=== PATIENT | male | born 1940 | race Caucasian/White ===

== ENCOUNTER → 2017-06-30 | Outpatient (CLI) | payer MEDICARE, OTHER ==
[~2017-06-30] MED LIST: ALBU8.5H8 IH; AMLO10TA2 PO; AZIT500T2 PO; BUDE10.2 IH; CYCL-259 PO; DEXT15SY PO; ERGO500017 PO; GABA800T PO; LEVE500T53 PO; LEVE500T8 PO; LISI40TA PO; METO-99 PO; OXYC1TAB7 PO; PRED20TA PO; TIOT18CA INH; ZOLP12.52 PO
[2017-06-30 09:14] LABS: HEMATOCRIT 39.8 % (39.2-51.8); HEMOGLOBIN 13.6 g/dL (13.7-18.0); WHITE BLOOD COUNT 5.6 x10^3/uL (3.4-10)
[2017-06-30 09:27] LABS: BLOOD UREA NITROGEN 15 mg/dL (7-18)
[2017-06-30 09:32] LABS: ASPARTATE AMINO TRANSFERASE 22 U/L (15-37)
== END | disposition home or self-care (01) ==
LOC: STAR 07:59
PROVIDERS: ATTEND Orthopaedic Surgery Orthopaedic Surgery of the Spine
DX: Z01.818 Encounter for other preprocedural examination (principal); R94.31 Abnormal electrocardiogram [ECG] [EKG]; R91.8 Other nonspecific abnormal finding of lung field; J98.6 Disorders of diaphragm; I10 Essential (primary) hypertension; M48.06 Spinal stenosis, lumbar region; R79.1 Abnormal coagulation profile; Z85.9 Personal history of malignant neoplasm, unspecified
CPT/HCPCS: 36415; 71020; 80053; 81003; 85025; 85610; 85730; 93005

== ENCOUNTER → 2017-07-21 | Outpatient (CLI) | payer MEDICARE, OTHER | END | disposition home or self-care (01) | LOC: RAD 13:24 | PROVIDERS: ATTEND Internal Medicine Critical Care Medicine | DX: J43.9 Emphysema, unspecified (principal); M48.54XA Collapsed vertebra, not elsewhere classified, thoracic region, initial encounter for fracture; R91.8 Other nonspecific abnormal finding of lung field; J69.0 Pneumonitis due to inhalation of food and vomit | CPT/HCPCS: 71250 ==

== ENCOUNTER 2017-07-22 07:40 | Day surgery (SDC) | payer MEDICARE, OTHER ==
[~2017-07-22] VITALS: Ht 177.8 cm; Wt 74.4 kg
[2017-07-22] MEDS ORDERED: LACTATED RINGERS 1,000 ML IV SCH (08:26)
[2017-07-22 09:07] VITALS: BP 131/59
[2017-07-22] MEDS ORDERED: DEXAMETHASONE 4 MG/ML, 1ML ONE (10:09)
[2017-07-22] MEDS ORDERED: FENTANYL PF 100 MCG/2ML ONE ×2 (10:09)
[2017-07-22] MEDS ORDERED: ROCURONIUM 10 MG/ML ONE (10:09)
[2017-07-22] MEDS ORDERED: SUCCINYLCHOLINE 20 MG/ML, 10ML ONE (10:09)
[2017-07-22] MEDS ORDERED: LIDOCAINE 2%, 10ML ONE (10:09)
[2017-07-22] MEDS ORDERED: ALBUTEROL SULFATE 200 PUFFS/8.5 GR INH ONE (10:09)
[2017-07-22] MEDS ORDERED: ONDANSETRON 2MG/ML, 2ML ONE (10:09)
[2017-07-22] MEDS ORDERED: MIDAZOLAM 1 MG/ML, 2ML ONE (10:09)
[2017-07-22] MEDS ORDERED: PROPOFOL 10 MG/ML, 50ML ONE (10:09)
[2017-07-22] MEDS ORDERED: PROPOFOL 10 MG/ML, 20ML ONE (10:09)
[2017-07-22] MEDS ORDERED: ALBUTEROL/IPRATROPIUM 2.5MG/0.5MG, 3 ML NPPB PRN (11:00)
[2017-07-22] MEDS ORDERED: HYDROmorphone 1 MG/ML, 1ML IV PRN (11:00)
[2017-07-22] MEDS ORDERED: LORazepam 2 MG/ML, 1ML IVPush PRN (11:00)
[2017-07-22] MEDS ORDERED: EPHEDRINE 50 MG/ML, 1ML IVPush PRN (11:00)
[2017-07-22] MEDS ORDERED: MIDAZOLAM 1 MG/ML, 2ML IV PRN (11:00)
[2017-07-22] MEDS ORDERED: ONDANSETRON 2MG/ML, 2ML IVPush PRN (11:00)
[2017-07-22] MEDS ORDERED: FENTANYL PF 100 MCG/2ML IV PRN (11:00)
[2017-07-22] MEDS ORDERED: OXYcodone 5 MG/5 ML ORAL.SOL UDC PO PRN (11:00)
[2017-07-22] MEDS ORDERED: ALBUTEROL SULFATE 2.5 MG/3 ML NPPB PRN (15:30)
== END 2017-07-22 16:15 ==
LOC: OUT 07:40
PROVIDERS: ATTEND Internal Medicine Critical Care Medicine
DX: J18.9 Pneumonia, unspecified organism (principal); F17.210 Nicotine dependence, cigarettes, uncomplicated; J44.9 Chronic obstructive pulmonary disease, unspecified; Z88.8 Allergy status to other drugs, medicaments and biological substances
CPT/HCPCS: 31624; 31627; 31628; 76000; 87070; 87077; 87102; 87186; 87205; 88112; 88172; 88173; 88177; 88305; 94640; J0330; J1100; J2250; J2405; J2704; J3010; J3490; J7120

== ENCOUNTER → 2017-10-08 | Outpatient (CLI) | payer MEDICARE, OTHER ==
[~2017-10-08] MED LIST changes: +REGADENOSON 0.4 MG/5 ML SYRINGE ONE
== END ==
LOC: CFH 12:37
PROVIDERS: ATTEND Family Medicine
DX: Z01.818 Encounter for other preprocedural examination (principal); R07.9 Chest pain, unspecified
CPT/HCPCS: 78452; 93017; A9502; J2785

== ENCOUNTER → 2017-10-23 | Outpatient (CLI) | payer MEDICARE, OTHER ==
[~2017-10-23] MED LIST changes: -REGADENOSON 0.4 MG/5 ML SYRINGE ONE
== END ==
LOC: CFH 14:29
PROVIDERS: ATTEND Internal Medicine Cardiovascular Disease
DX: Z01.810 Encounter for preprocedural cardiovascular examination (principal); I35.8 Other nonrheumatic aortic valve disorders; E78.5 Hyperlipidemia, unspecified; I10 Essential (primary) hypertension; J45.909 Unspecified asthma, uncomplicated; Z87.891 Personal history of nicotine dependence
CPT/HCPCS: 93306

== ENCOUNTER 2017-11-17 05:53 | Inpatient (IN) | payer MEDICARE, OTHER ==
[~2017-11-17] VITALS: Ht 177.8 cm; Wt 82.2 kg
[~2017-11-17 05:53] MED LIST changes: +ATOR20TA9 PO; +TAMS0.4C2 PO
[2017-11-17] MEDS ORDERED: LACTATED RINGERS 1,000 ML IV SCH (06:34)
[2017-11-17 06:39] VITALS: BP 125/66
[2017-11-17] MEDS ORDERED: MIDAZOLAM 1 MG/ML, 2ML ONE (06:43)
[2017-11-17] MEDS ORDERED: FENTANYL PF 250 MCG/5ML ONE (06:44)
[2017-11-17] MEDS ORDERED: PROPOFOL 10 MG/ML, 20ML ONE (06:45)
[2017-11-17] MEDS ORDERED: ROCURONIUM 10 MG/ML,10ML ONE (06:45)
[2017-11-17] MEDS ORDERED: NEOSTIGMINE 1 MG/ML, 10ML ONE (06:46)
[2017-11-17] MEDS ORDERED: GLYCOPYRROLATE 0.4 MG/2 ML, 2ML ONE (06:46)
[2017-11-17] MEDS ORDERED: THROMBIN 5,000 UNIT VIAL TP ONE (06:50)
[2017-11-17] MEDS ORDERED: BUPIVACAINE/PF 0.25% ONE (06:50)
[2017-11-17] MEDS ORDERED: LIDOCAINE/PF 0.5% ,50ML ONE (06:50)
[2017-11-17] MEDS ORDERED: VANCOMYCIN 500 MG ONE (06:50)
[2017-11-17] MEDS ORDERED: EPINEPHRINE 1 MG/ML, 1ML ONE (06:51)
[2017-11-17] MEDS ORDERED: CLINDAMYCIN 150 MG/ML, 6ML ONE (06:52)
[2017-11-17 07:23] LABS: ALANINE AMINOTRANSFERASE 23 U/L (12-78); ALBUMIN 3.7 g/dL (3.4-5.0); ANION GAP 10 mmol/L (5-15); CALCIUM 8.7 mg/dL (8.5-10.1); CHLORIDE 95 mmol/L (98-107); CREATININE 0.86 mg/dL (0.7-1.3)
[2017-11-17 07:25] LABS: ALKALINE PHOSPHATASE 72 U/L (45-117); BILIRUBIN,TOTAL 2.4 mg/dL (0.2-1.0); TOTAL PROTEIN 7.4 g/dL (6.4-8.2)
[2017-11-17] MEDS ORDERED: DIAZEPAM 5 MG/ML, 2ML IVPush PRN (07:30)
[2017-11-17] MEDS ORDERED: ALBUTEROL SULFATE 2.5 MG/3 ML NPPB PRN ×2 (07:30→15:00)
[2017-11-17] MEDS ORDERED: LABETALOL 5MG/ML, 20ML IV PRN (07:30)
[2017-11-17] MEDS ORDERED: hydrALAzine 20 MG/ML, 1ML IV PRN (07:30)
[2017-11-17] MEDS ORDERED: ONDANSETRON 2MG/ML, 2ML IVPush PRN (07:30)
[2017-11-17] MEDS ORDERED: PROMETHAZINE 25 MG/ML, 1ML IV PRN (07:30)
[2017-11-17] MEDS ORDERED: MEPERIDINE/PF 25MG/0.5ML IVPush PRN (07:30)
[2017-11-17] MEDS ORDERED: FENTANYL PF 100 MCG/2ML IV PRN (07:30)
[2017-11-17] MEDS ORDERED: OXYcodone 5 MG/5 ML ORAL.SOL UDC PO PRN (07:30)
[2017-11-17] MEDS ORDERED: ACETAMINOPHEN 325 MG TABLET PO PRN (07:30)
[2017-11-17] MEDS ORDERED: PHENYLEPHRINE 10 MG/ML ONE (07:37)
[2017-11-17] MEDS ORDERED: EPHEDRINE 50 MG/ML, 1ML ONE (08:00)
[2017-11-17] MEDS ORDERED: FLU VACC QS2017-18 (36MOS+) UP/PF 0.5 ML IM-VACC ONE (08:00)
[2017-11-17] MEDS ORDERED: VASOPRESSIN 20 UNIT/ML, 1ML ONE (08:15)
[2017-11-17] MEDS ORDERED: SODIUM CHLORIDE 0.9% PF 10ML ONE (08:17)
[2017-11-17] MEDS ORDERED: VANCOMYCIN 1,000 MG IM ONE (08:54)
[2017-11-17] MEDS ORDERED: OXYcodone 5 MG/5 ML ORAL.SOL UDC ONE (11:05)
[2017-11-17] MEDS ORDERED: HYDROmorphone 2 MG/ML, 1ML ONE ×2 (11:05→11:48)
[2017-11-17] MEDS ORDERED: ACETAMINOPHEN 650 MG/20.3 ML UDC ONE (11:05)
[2017-11-17] MEDS ORDERED: ALBUTEROL SULFATE 2.5 MG/3 ML ONE (11:06)
[2017-11-17] MEDS: HYDROmorphone 1 MG/ML, 1ML IV PRN ×6 (11:17→12:01)
[2017-11-17] MEDS ORDERED: ONDANSETRON 2MG/ML, 2ML IV PRN (14:30)
[2017-11-17] MEDS ORDERED: HYDROcodone/APAP 5/325 TABLET PO PRN (14:30)
[2017-11-17] MEDS ORDERED: VANCOMYCIN PER PHARMACY MC PRN (14:30)
[2017-11-17] MEDS: D5%-0.9% NACL+KCL 20MEQ 1,000 ML IV SCH ×2 (14:30→21:35)
[2017-11-17] MEDS ORDERED: morphine SULFATE 10 MG/ML, 1ML IV PRN (14:30)
[2017-11-17] MEDS ORDERED: BISACODYL 10 MG SUPP PR PRN (14:30)
[2017-11-17] MEDS ORDERED: MAGNESIUM HYDROXIDE 8%, 30ML UDC PO PRN (14:30)
[2017-11-17] MEDS ORDERED: PROMETHAZINE 25 MG/ML, 1ML IM PRN (14:30)
[2017-11-17] MEDS ORDERED: IPRATROPIUM 0.5 MG/2.5 ML INHA NPPB SCH (15:00)
[2017-11-17] MEDS: GABAPENTIN 400 MG CAPSULE PO SCH ×2 (15:23→21:34)
[2017-11-17] MEDS: VANCOMYCIN 1,400 MG in SODIUM CHLORIDE 0.9% 250 ML IV SCH (15:23)
[2017-11-17] MEDS ORDERED: IPRATROPIUM 0.5 MG/2.5 ML INHA NPPB PRN (16:00)
[2017-11-17] MEDS ORDERED: ALBUTEROL HFA 90 MCG/SPRAY INH PRN ×2 (18:00→22:00)
[2017-11-17] MEDS ORDERED: METOPROLOL TARTRATE 50 MG TABLET PO SCH (18:00)
[2017-11-17 19:32] VITALS: BP 106/57
[2017-11-17 20:19] LABS: ANION GAP 6 mmol/L (5-15); CALCIUM 7.8 mg/dL (8.5-10.1); CHLORIDE 96 mmol/L (98-107); CREATININE 0.86 mg/dL (0.7-1.3)
[2017-11-17] MEDS ORDERED: TAMSULOSIN 0.4 MG CAP.ER.24H PO SCH (21:00)
[2017-11-17] MEDS ORDERED: ATORVASTATIN 20 MG TABLET PO SCH (21:00)
[2017-11-17] MEDS ORDERED: LEVETIRACETAM 500 MG TABLET PO SCH (21:00)
[2017-11-17] MEDS ORDERED: FLUTICASONE NASAL SPRAY 16GM NAS SCH (21:00)
[2017-11-17] MEDS ORDERED: AMBIEN 12.5 MG PO SCH (21:00)
[2017-11-17] MEDS: AMBIEN 12.5 MG HOMEMEDPO SCH (21:33)
[2017-11-17] MEDS: SYMBICORT HOMEMEDPO SCH (21:33)
[2017-11-17] MEDS: FLUTICASONE NASAL SPRAY 16GM NAS SCH (21:34)
[2017-11-17] MEDS ORDERED: ALBUTEROL/IPRATROPIUM 2.5MG/0.5MG, 3 ML NPPB PRN (22:30)
[2017-11-18] VITALS: BP 131/63
[2017-11-18] MEDS: VANCOMYCIN 1,400 MG in SODIUM CHLORIDE 0.9% 250 ML IV SCH (03:00)
[2017-11-18 04:06] VITALS: BP 125/88
[2017-11-18] MEDS ORDERED: FUROSEMIDE 40 MG/4 ML IV ONE ×2 (05:10→15:00)
[2017-11-18] MEDS ORDERED: METOPROLOL SUCCINATE 100 MG TAB.ER.24H PO SCH (06:00)
[2017-11-18 06:07] LABS: BASOPHILS # (AUTO) 0.02 x10^3/uL (0-0.1); BASOPHILS % (AUTO) 0 % (0-1); EOSINOPHILS # (AUTO) 0.02 x10^3/uL (0-0.4); EOSINOPHILS % (AUTO) 0 % (1-7); LYMPHOCYTES # (AUTO) 0.29 x10^3/uL (1-3.4); LYMPHOCYTES % (AUTO) 5 % (22-44); MD NO; MEAN CORPUSCULAR HEMOGLOBIN 34.4 pg (27.5-34.5); MEAN CORPUSCULAR HGB CONC 34.2 g/dL (33.2-36.2); MEAN CORPUSCULAR VOLUME 100.9 fL (81-97); MEAN PLATELET VOLUME 7.8 fL (7.4-10.4); MONOCYTES # (AUTO) 0.41 x10^3/uL (0.2-0.8); MONOCYTES % (AUTO) 7 % (2-9); NEUTROPHILS # (AUTO) 5.14 x10^3/uL (1.8-6.8); NEUTROPHILS % (AUTO) 87 % (42-75); PLATELET COUNT 145 x10^3/uL (130-400); RED BLOOD COUNT 3.12 x10^6/uL (4.38-5.82); RED CELL DISTRIBUTION WIDTH 12.9 % (9.4-14.8)
[2017-11-18 06:21] LABS: ANION GAP 9 mmol/L (5-15); CHLORIDE 96 mmol/L (98-107)
[2017-11-18] MEDS: ALBUTEROL/IPRATROPIUM 2.5MG/0.5MG, 3 ML NPPB SCH ×4 (06:46→20:00)
[2017-11-18 06:49] LABS: CREATININE 0.81 mg/dL (0.7-1.3)
[2017-11-18 06:53] LABS: FOLATE LEVEL > 20.0 ng/mL (3.1-17.5)
[2017-11-18 08:26] VITALS: BP 105/62
[2017-11-18] MEDS ORDERED: FLUTICASONE/VILANTEROL 200-25MCG/INH INH SCH (09:00)
[2017-11-18] MEDS ORDERED: LEVETIRACETAM 500 MG TABLET PO SCH (09:00)
[2017-11-18] MEDS ORDERED: LISINOPRIL 20 MG TABLET PO SCH (09:00)
[2017-11-18] MEDS ORDERED: OXYcodone/APAP 5/325MG TABLET PO PRN (09:00)
[2017-11-18] MEDS: OXYcodone/APAP 5/325MG TABLET PO PRN (09:44)
[2017-11-18] MEDS: SENNA/DOCUSATE TABLET PO SCH (09:44)
[2017-11-18] MEDS: GABAPENTIN 400 MG CAPSULE PO SCH ×2 (09:44→15:50)
[2017-11-18] MEDS: MAGNESIUM HYDROXIDE 8%, 30ML UDC PO SCH (09:44)
[2017-11-18] MEDS: TEMPLATE NON-FORMULARY MED. (SPIRIVA 1 INH) HOMEMEDPO SCH (09:46)
[2017-11-18] MEDS: SYMBICORT HOMEMEDPO SCH ×2 (09:46→21:00)
[2017-11-18] MEDS: D5%-0.9% NACL+KCL 20MEQ 1,000 ML IV SCH (09:56)
[2017-11-18] MEDS ORDERED: ENOXAPARIN 30 MG/0.3 ML SQ SCH (13:30)
[2017-11-18] MEDS ORDERED: OMNIPAQUE 350 MG/ML, 100ML BOTTLE ONE (13:41)
[2017-11-18] MEDS ORDERED: FUROSEMIDE 40 MG/4 ML ONE (14:23)
[2017-11-18] MEDS: AMPICILLIN/SULBACTAM 3 GM in SODIUM CHLORIDE 0.9% 100 ML IV SCH ×2 (15:49→21:19)
[2017-11-18] MEDS ORDERED: LISINOPRIL 20 MG TABLET NG SCH (19:01)
[2017-11-18] MEDS ORDERED: ATORVASTATIN 20 MG TABLET NG SCH (19:06)
[2017-11-18] MEDS ORDERED: GABAPENTIN 250 MG/5 ML ORAL SOL PO SCH (21:00)
[2017-11-18] MEDS: FLUTICASONE NASAL SPRAY 16GM NAS SCH (21:00)
[2017-11-18] MEDS: AMBIEN 12.5 MG HOMEMEDPO SCH (21:00)
[2017-11-18] MEDS: LEVETIRACETAM 100 MG/ML ORAL SOL PO SCH (21:19)
[2017-11-18] MEDS: METOPROLOL TARTRATE 50 MG TABLET NG SCH (21:20)
[2017-11-18] MEDS: LISINOPRIL 20 MG TABLET NG SCH (21:20)
[2017-11-19] MEDS: D5%-0.9% NACL+KCL 20MEQ 1,000 ML IV SCH ×2 (02:36→17:09)
[2017-11-19] MEDS: AMPICILLIN/SULBACTAM 3 GM in SODIUM CHLORIDE 0.9% 100 ML IV SCH ×4 (02:53→22:06)
[2017-11-19 04:00] VITALS: BP 140/64
[2017-11-19 04:39] LABS: BASOPHILS % (AUTO) 0 % (0-1); EOSINOPHILS # (AUTO) 0.05 x10^3/uL (0-0.4); EOSINOPHILS % (AUTO) 1 % (1-7); LYMPHOCYTES # (AUTO) 0.37 x10^3/uL (1-3.4); LYMPHOCYTES % (AUTO) 7 % (22-44); MD NO; MEAN CORPUSCULAR HEMOGLOBIN 34.5 pg (27.5-34.5); MEAN CORPUSCULAR VOLUME 101.6 fL (81-97); MEAN PLATELET VOLUME 7.6 fL (7.4-10.4); MONOCYTES # (AUTO) 0.67 x10^3/uL (0.2-0.8); MONOCYTES % (AUTO) 13 % (2-9); NEUTROPHILS # (AUTO) 3.99 x10^3/uL (1.8-6.8); NEUTROPHILS % (AUTO) 79 % (42-75); PLATELET COUNT 146 x10^3/uL (130-400); RED BLOOD COUNT 3.02 x10^6/uL (4.38-5.82); RED CELL DISTRIBUTION WIDTH 12.7 % (9.4-14.8)
[2017-11-19 04:44] LABS: ALANINE AMINOTRANSFERASE 33 U/L (12-78); ALBUMIN 2.9 g/dL (3.4-5.0); ANION GAP 7 mmol/L (5-15); CALCIUM 8.2 mg/dL (8.5-10.1); CHLORIDE 96 mmol/L (98-107); CREATININE 0.71 mg/dL (0.7-1.3); IRON LEVEL 13 mcg/dL (65-175)
[2017-11-19 04:48] LABS: % IRON SATURATION 6 % (20-55); ALKALINE PHOSPHATASE 68 U/L (45-117); BILIRUBIN,TOTAL 0.8 mg/dL (0.2-1.0); TOTAL IRON BINDING CAPACITY 201 mcg/dL (250-450); TOTAL PROTEIN 6.4 g/dL (6.4-8.2)
[2017-11-19] MEDS: OXYcodone/APAP 5/325MG TABLET PO PRN ×4 (04:49→20:05)
[2017-11-19] MEDS: ALBUTEROL/IPRATROPIUM 2.5MG/0.5MG, 3 ML NPPB SCH ×4 (06:54→20:00)
[2017-11-19 07:00] VITALS: BP 142/76
[2017-11-19 08:00] VITALS: BP 140/76
[2017-11-19] MEDS: LISINOPRIL 20 MG TABLET NG SCH (08:25)
[2017-11-19 09:00] VITALS: BP 140/65
[2017-11-19] MEDS: GABAPENTIN 250 MG/5 ML ORAL SOL PO SCH ×3 (09:32→20:05)
[2017-11-19] MEDS: LEVETIRACETAM 100 MG/ML ORAL SOL PO SCH ×2 (09:33→20:06)
[2017-11-19] MEDS: MAGNESIUM HYDROXIDE 8%, 30ML UDC PO SCH (09:41)
[2017-11-19] MEDS: SYMBICORT HOMEMEDPO SCH ×2 (09:42→20:08)
[2017-11-19] MEDS: TEMPLATE NON-FORMULARY MED. (SPIRIVA 1 INH) HOMEMEDPO SCH (09:42)
[2017-11-19] MEDS: METOPROLOL TARTRATE 50 MG TABLET NG SCH (09:42)
[2017-11-19] MEDS: SENNA/DOCUSATE TABLET PO SCH (09:42)
[2017-11-19] MEDS ORDERED: METHYLNALTREXONE 12 MG/0.6 ML SQ ONE (11:00)
[2017-11-19 12:30] VITALS: BP 133/76
[2017-11-19] MEDS ORDERED: METOPROLOL TARTRATE 50 MG TABLET PO SCH (16:57)
[2017-11-19] MEDS ORDERED: LISINOPRIL 20 MG TABLET PO SCH (16:58)
[2017-11-19 18:30] VITALS: BP 167/79
[2017-11-19] MEDS: TAMSULOSIN 0.4 MG CAP.ER.24H PO SCH (20:05)
[2017-11-19] MEDS: ATORVASTATIN 20 MG TABLET PO SCH (20:05)
[2017-11-19] MEDS: FLUTICASONE NASAL SPRAY 16GM NAS SCH (20:06)
[2017-11-19] MEDS: AMBIEN 12.5 MG HOMEMEDPO SCH (20:08)
[2017-11-20 01:09] VITALS: BP 116/71
[2017-11-20] MEDS: D5%-0.9% NACL+KCL 20MEQ 1,000 ML IV SCH ×3 (03:50→21:00)
[2017-11-20] MEDS: AMPICILLIN/SULBACTAM 3 GM in SODIUM CHLORIDE 0.9% 100 ML IV SCH ×5 (03:50→22:05)
[2017-11-20 07:09] VITALS: BP 135/72
[2017-11-20] MEDS: ALBUTEROL/IPRATROPIUM 2.5MG/0.5MG, 3 ML NPPB SCH ×4 (07:20→20:03)
[2017-11-20] MEDS: TEMPLATE NON-FORMULARY MED. (SPIRIVA 1 INH) HOMEMEDPO SCH (08:02)
[2017-11-20] MEDS: SYMBICORT HOMEMEDPO SCH ×2 (08:02→21:14)
[2017-11-20] MEDS: GABAPENTIN 250 MG/5 ML ORAL SOL PO SCH ×3 (08:02→21:13)
[2017-11-20] MEDS: LEVETIRACETAM 100 MG/ML ORAL SOL PO SCH ×2 (08:02→21:13)
[2017-11-20] MEDS: METOPROLOL SUCCINATE 100 MG TAB.ER.24H PO SCH (08:03)
[2017-11-20] MEDS: OXYcodone/APAP 5/325MG TABLET PO PRN ×3 (08:03→19:26)
[2017-11-20] MEDS: LISINOPRIL 20 MG TABLET PO SCH (08:03)
[2017-11-20] MEDS: MAGNESIUM HYDROXIDE 8%, 30ML UDC PO SCH (08:11)
[2017-11-20] MEDS: SENNA/DOCUSATE TABLET PO SCH (08:11)
[2017-11-20 13:01] VITALS: BP 121/74
[2017-11-20 19:23] VITALS: BP 165/85
[2017-11-20] MEDS: TAMSULOSIN 0.4 MG CAP.ER.24H PO SCH (21:13)
[2017-11-20] MEDS: ATORVASTATIN 20 MG TABLET PO SCH (21:13)
[2017-11-20] MEDS: FLUTICASONE NASAL SPRAY 16GM NAS SCH (21:14)
[2017-11-20] MEDS: AMBIEN 12.5 MG HOMEMEDPO SCH (22:05)
[2017-11-21] MEDS: OXYcodone/APAP 5/325MG TABLET PO PRN ×4 (00:04→20:16)
[2017-11-21 02:12] VITALS: BP 133/80
[2017-11-21] MEDS: AMPICILLIN/SULBACTAM 3 GM in SODIUM CHLORIDE 0.9% 100 ML IV SCH ×4 (04:17→22:11)
[2017-11-21] MEDS ORDERED: LIDOCAINE GEL 2%, 5ML TP ONE (05:30)
[2017-11-21] MEDS: D5%-0.9% NACL+KCL 20MEQ 1,000 ML IV SCH (07:00)
[2017-11-21 07:14] VITALS: BP 170/87
[2017-11-21] MEDS: ALBUTEROL/IPRATROPIUM 2.5MG/0.5MG, 3 ML NPPB SCH ×4 (08:15→18:54)
[2017-11-21] MEDS: SENNA/DOCUSATE TABLET PO SCH (09:00)
[2017-11-21] MEDS: SYMBICORT HOMEMEDPO SCH ×2 (09:00→20:17)
[2017-11-21] MEDS: MAGNESIUM HYDROXIDE 8%, 30ML UDC PO SCH (09:00)
[2017-11-21] MEDS ORDERED: GABAPENTIN 250 MG/5 ML ORAL SOL PO SCH (09:00)
[2017-11-21] MEDS: LEVETIRACETAM 500 MG TABLET PO SCH ×2 (09:11→20:15)
[2017-11-21] MEDS: GABAPENTIN 400 MG CAPSULE PO SCH ×3 (09:12→20:16)
[2017-11-21] MEDS: METOPROLOL SUCCINATE 100 MG TAB.ER.24H PO SCH (09:13)
[2017-11-21] MEDS: LISINOPRIL 20 MG TABLET PO SCH (09:13)
[2017-11-21] MEDS: TEMPLATE NON-FORMULARY MED. (SPIRIVA 1 INH) HOMEMEDPO SCH (09:14)
[2017-11-21 09:21] VITALS: BP 158/98
[2017-11-21 13:05] VITALS: BP 135/77
[2017-11-21] MEDS: NS + 20MEQ KCL 1,000 ML IV SCH (15:38)
[2017-11-21 19:29] VITALS: BP 165/88
[2017-11-21] MEDS: TAMSULOSIN 0.4 MG CAP.ER.24H PO SCH (20:16)
[2017-11-21] MEDS: ATORVASTATIN 20 MG TABLET PO SCH (20:16)
[2017-11-21] MEDS: FLUTICASONE NASAL SPRAY 16GM NAS SCH (20:17)
[2017-11-21] MEDS: AMBIEN 12.5 MG HOMEMEDPO SCH (21:00)
[2017-11-22 02:42] VITALS: BP 163/101
[2017-11-22] MEDS: AMPICILLIN/SULBACTAM 3 GM in SODIUM CHLORIDE 0.9% 100 ML IV SCH ×4 (04:10→23:00)
[2017-11-22 05:15] LABS: BASOPHILS # (AUTO) 0.03 x10^3/uL (0-0.1); BASOPHILS % (AUTO) 0 % (0-1); EOSINOPHILS # (AUTO) 0.15 x10^3/uL (0-0.4); EOSINOPHILS % (AUTO) 2 % (1-7); LYMPHOCYTES # (AUTO) 0.62 x10^3/uL (1-3.4); LYMPHOCYTES % (AUTO) 9 % (22-44); MD NO; MEAN CORPUSCULAR HEMOGLOBIN 34.4 pg (27.5-34.5); MEAN CORPUSCULAR VOLUME 101.1 fL (81-97); MEAN PLATELET VOLUME 7.2 fL (7.4-10.4); MONOCYTES # (AUTO) 0.72 x10^3/uL (0.2-0.8); MONOCYTES % (AUTO) 11 % (2-9); NEUTROPHILS # (AUTO) 5.16 x10^3/uL (1.8-6.8); NEUTROPHILS % (AUTO) 77 % (42-75); PLATELET COUNT 183 x10^3/uL (130-400); RED BLOOD COUNT 2.93 x10^6/uL (4.38-5.82)
[2017-11-22 05:24] LABS: ANION GAP 8 mmol/L (5-15); CALCIUM 8.2 mg/dL (8.5-10.1); CHLORIDE 98 mmol/L (98-107)
[2017-11-22 05:26] LABS: CREATININE 0.52 mg/dL (0.7-1.3)
[2017-11-22 07:11] VITALS: BP 161/100
[2017-11-22] MEDS: ALBUTEROL/IPRATROPIUM 2.5MG/0.5MG, 3 ML NPPB SCH ×4 (07:30→20:20)
[2017-11-22] MEDS: LISINOPRIL 20 MG TABLET PO SCH (07:56)
[2017-11-22] MEDS: OXYcodone/APAP 5/325MG TABLET PO PRN ×3 (07:56→21:02)
[2017-11-22] MEDS: TEMPLATE NON-FORMULARY MED. (SPIRIVA 1 INH) HOMEMEDPO SCH (07:57)
[2017-11-22] MEDS: GABAPENTIN 400 MG CAPSULE PO SCH ×3 (07:57→21:13)
[2017-11-22] MEDS: METOPROLOL SUCCINATE 100 MG TAB.ER.24H PO SCH (07:57)
[2017-11-22] MEDS: LEVETIRACETAM 500 MG TABLET PO SCH ×2 (07:57→21:14)
[2017-11-22] MEDS: MAGNESIUM HYDROXIDE 8%, 30ML UDC PO SCH ×2 (07:58→08:06)
[2017-11-22] MEDS: SENNA/DOCUSATE TABLET PO SCH (07:58)
[2017-11-22] MEDS: SYMBICORT HOMEMEDPO SCH ×2 (08:00→21:00)
[2017-11-22 10:00] VITALS: BP 157/96
[2017-11-22] MEDS: ENOXAPARIN 40 MG/0.4 ML SQ SCH (11:35)
[2017-11-22] MEDS: NS + 20MEQ KCL 1,000 ML IV SCH (13:07)
[2017-11-22 13:21] VITALS: BP 155/81
[2017-11-22] MEDS ORDERED: ALBUTEROL SULFATE 2.5 MG/3 ML NPPB PRN (19:30)
[2017-11-22] MEDS ORDERED: METHYLNALTREXONE 12 MG/0.6 ML SQ ONE (19:30)
[2017-11-22] MEDS: AMBIEN 12.5 MG HOMEMEDPO SCH (21:00)
[2017-11-22] MEDS: ATORVASTATIN 20 MG TABLET PO SCH (21:02)
[2017-11-22] MEDS: TAMSULOSIN 0.4 MG CAP.ER.24H PO SCH (21:02)
[2017-11-22] MEDS: FLUTICASONE NASAL SPRAY 16GM NAS SCH (21:03)
[2017-11-22 21:24] VITALS: BP 154/97
[2017-11-23 00:55] VITALS: BP 152/97
[2017-11-23] MEDS: AMPICILLIN/SULBACTAM 3 GM in SODIUM CHLORIDE 0.9% 100 ML IV SCH ×4 (06:34→23:16)
[2017-11-23 06:55] VITALS: BP 160/104
[2017-11-23] MEDS: ALBUTEROL/IPRATROPIUM 2.5MG/0.5MG, 3 ML NPPB SCH ×4 (07:00→19:51)
[2017-11-23] MEDS: MAGNESIUM HYDROXIDE 8%, 30ML UDC PO SCH (09:00)
[2017-11-23] MEDS: SENNA/DOCUSATE TABLET PO SCH (09:00)
[2017-11-23] MEDS: LISINOPRIL 20 MG TABLET PO SCH (09:33)
[2017-11-23] MEDS: GABAPENTIN 400 MG CAPSULE PO SCH ×3 (09:33→21:21)
[2017-11-23] MEDS: METOPROLOL SUCCINATE 100 MG TAB.ER.24H PO SCH (09:33)
[2017-11-23] MEDS: LEVETIRACETAM 500 MG TABLET PO SCH ×2 (09:33→21:23)
[2017-11-23] MEDS: SYMBICORT HOMEMEDPO SCH ×2 (09:34→21:00)
[2017-11-23] MEDS: TEMPLATE NON-FORMULARY MED. (SPIRIVA 1 INH) HOMEMEDPO SCH (09:34)
[2017-11-23] MEDS: OXYcodone/APAP 5/325MG TABLET PO PRN ×4 (09:44→21:31)
[2017-11-23] MEDS: ENOXAPARIN 40 MG/0.4 ML SQ SCH (12:48)
[2017-11-23 13:00] VITALS: BP 100/51
[2017-11-23] MEDS: NS + 20MEQ KCL 1,000 ML IV SCH (17:16)
[2017-11-23 20:04] VITALS: BP 171/106
[2017-11-23] MEDS: FLUTICASONE NASAL SPRAY 16GM NAS SCH (21:00)
[2017-11-23] MEDS: AMBIEN 12.5 MG HOMEMEDPO SCH (21:18)
[2017-11-23] MEDS: TAMSULOSIN 0.4 MG CAP.ER.24H PO SCH (21:20)
[2017-11-23] MEDS: ATORVASTATIN 20 MG TABLET PO SCH (21:21)
[2017-11-23 21:51] VITALS: BP 165/101
[2017-11-24 03:41] VITALS: BP 157/95
[2017-11-24] MEDS: AMPICILLIN/SULBACTAM 3 GM in SODIUM CHLORIDE 0.9% 100 ML IV SCH ×3 (04:58→17:00)
[2017-11-24] MEDS: ALBUTEROL/IPRATROPIUM 2.5MG/0.5MG, 3 ML NPPB SCH ×3 (07:05→14:49)
[2017-11-24 07:20] VITALS: BP 161/99
[2017-11-24] MEDS: MAGNESIUM HYDROXIDE 8%, 30ML UDC PO SCH (09:00)
[2017-11-24] MEDS ORDERED: ERGOCALCIFEROL 50,000 UNIT CAPSULE PO SCH (09:00)
[2017-11-24] MEDS: TEMPLATE NON-FORMULARY MED. (SPIRIVA 1 INH) HOMEMEDPO SCH (11:03)
[2017-11-24] MEDS: SYMBICORT HOMEMEDPO SCH (11:03)
[2017-11-24] MEDS: OXYcodone/APAP 5/325MG TABLET PO PRN ×2 (11:04→15:44)
[2017-11-24] MEDS: SENNA/DOCUSATE TABLET PO SCH (11:10)
[2017-11-24] MEDS: NS + 20MEQ KCL 1,000 ML IV SCH (11:13)
[2017-11-24] MEDS: GABAPENTIN 400 MG CAPSULE PO SCH ×2 (12:19→16:22)
[2017-11-24] MEDS: LEVETIRACETAM 500 MG TABLET PO SCH (12:20)
[2017-11-24] MEDS: LISINOPRIL 20 MG TABLET PO SCH (12:20)
[2017-11-24] MEDS: METOPROLOL SUCCINATE 100 MG TAB.ER.24H PO SCH (12:20)
[2017-11-24] MEDS: ENOXAPARIN 40 MG/0.4 ML SQ SCH (12:27)
[2017-11-24] MEDS ORDERED: GABA-827 PO (13:57)
[2017-11-24] MEDS ORDERED: METO-95 PO (13:58)
[2017-11-24] MEDS ORDERED: TAMS0.4C2 PO (13:58)
[2017-11-24] MEDS ORDERED: FLUT16SP NS (14:01)
[2017-11-24] MEDS ORDERED: ENOX40SY4 SQ (14:02)
[2017-11-24] MEDS ORDERED: AMOX1TAB64 PO (14:02)
[2017-11-24 14:35] VITALS: BP 167/105
[2017-11-24] MEDS ORDERED: OXYC-302 PO (15:16)
[2017-11-24] MEDS ORDERED: POTASSIUM CHLORIDE 20 MEQ TAB.ER.PRT PO ONE (17:30)
[2017-11-24] MEDS ORDERED: FUROSEMIDE 40 MG/4 ML IV ONE (17:30)
[2017-11-24 17:59] VITALS: BP 172/100
[2017-11-24 18:19] VITALS: BP 153/94
[2017-11-24 18:25] VITALS: BP 134/89
== END 2017-11-24 19:20 | DRG 459 ==
LOC: ORIP 05:53 → 4NOR 14:02 → CCU 11-18 11:58 → ICU 11-18 18:20 → 4NOR 11-19 11:28
PROVIDERS: ADMIT Orthopaedic Surgery Orthopaedic Surgery of the Spine; ATTEND Orthopaedic Surgery Orthopaedic Surgery of the Spine
PROC: 0SG00A0 Fusion of Lumbar Vertebral Joint with Interbody Fusion Device, Anterior Approach, Anterior Column, Open Approach (ICD-10-PCS; 2017-11-17)
PROC: 0SB20ZZ Excision of Lumbar Vertebral Disc, Open Approach (ICD-10-PCS; principal; 2017-11-17 07:30)
DX: M48.061 Spinal stenosis, lumbar region without neurogenic claudication (principal); R09.2 Respiratory arrest; J18.1 Lobar pneumonia, unspecified organism; I95.9 Hypotension, unspecified; E87.1 Hypo-osmolality and hyponatremia; D62 Acute posthemorrhagic anemia; K56.7 Ileus, unspecified; D75.89 Other specified diseases of blood and blood-forming organs; Z99.81 Dependence on supplemental oxygen; R13.10 Dysphagia, unspecified; G40.909 Epilepsy, unspecified, not intractable, without status epilepticus; E78.2 Mixed hyperlipidemia; F17.200 Nicotine dependence, unspecified, uncomplicated; I10 Essential (primary) hypertension; Z96.1 Presence of intraocular lens; Z96.641 Presence of right artificial hip joint; J43.2 Centrilobular emphysema; M54.16 Radiculopathy, lumbar region; N40.1 Benign prostatic hyperplasia with lower urinary tract symptoms; R09.02 Hypoxemia; R31.0 Gross hematuria; R33.8 Other retention of urine; Z79.899 Other long term (current) drug therapy; Z80.1 Family history of malignant neoplasm of trachea, bronchus and lung; Z82.49 Family history of ischemic heart disease and other diseases of the circulatory system; Z82.5 Family history of asthma and other chronic lower respiratory diseases; Z85.828 Personal history of other malignant neoplasm of skin; Z91.81 History of falling; Z98.1 Arthrodesis status; Z98.41 Cataract extraction status, right eye; Z98.42 Cataract extraction status, left eye; Z23 Encounter for immunization
CPT/HCPCS: 36415; 36600; 71045; 71275; 72100; 74018; 74230; 80048; 80053; 82607; 82746; 82803; 83540; 83550; 85025; 87081; 90686; 93005; 94640; C1713; J0171; J0295; J1170; J1650; J1940; J2001; J2250; J2270; J2704; J2710; J3010; J3360; J3370; J3480; J3490; J7620; Q9967; C1762; J2370; J7050; J7120